=== PATIENT | female | born 1950 | race Caucasian/White ===

== ENCOUNTER → 2017-08-09 | Outpatient (CLI) | payer MEDICARE, OTHER ==
[2015-01-30 09:14] VITALS: BMI 38.4
[~2017-08-09] MED LIST: ADV100/50 INH; ALB6.7R INH; AMOX-362 PO; ASPI-1471 PO; ASPI-764 PO; ATOR20TA22 PO; BARIUM SULFATE 148 GM POWDER ONE; BARIUM SULFATE 240 ML ORAL SUS (NECTAR) ONE; CA C; CALC-547 PO; CARV12.578 PO; CHOL200074 PO; CIP500 PO; CIPR-326 PO; CRAN200C5 PO; CRAN400C2 PO; DAR100 PO; DEXL60CA6 PO; ESTR0.9T14 PO; FURO-47 PO; GABA-549 PO; HYDR12.558 PO; HYDR200T39 PO; HYDR200T42 PO; HYDR200T77 PO; HYDR2TAB74 PO; IBUP200C74 PO; LISI-349 PO; LISI20TA29 PO; LOR5 PO; MELO-207 PO; META-1 PO; METO25TA91 PO; METO25TA93 PO; MULT-1176 PO; OMEP-125 PO; OXYC-865 PO; OXYC5CAP21 PO; PHENA200 PO; RIV10 PO; RIVA20TA PO; TIO18R IH; TRA50 PO; TRAM-420 PO; VALA100062 PO; VALA500T66 PO; VALP250C32 PO; WARF5TAB23 PO; [UNRECOGNIZED DRUG - OTHER] SUBQ
--- NOTE | 2017-08-09 16:53 | RADIOLOGY IMAGING REPORT ---
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 Findings: A modified barium swallow was performed by the speech pathologist. Fluoroscopic assistance was provi ded. Patient received thin barium and various solids and a barium tablet. Mild oral dysphagia was n oted with meat. Please see speech pathologist report for complete details. The fluoroscopy dose are a product was 340.86 micro-Masterson per meter squared IMPRESSION: 1. As above Report Dictated By: Indy Henriquez MD at 08/09/2017 4:42 PM Report E-Signed By: Indy Henriquez MD at 08/09/2017 4:48 PM WSN:[email or web address]
--- NOTE | 2017-08-10 08:57 | SLP MODIFIED BARIUM SWALLOW ---
Speech Language Pathology Modified Barium Swallow Evaluation Report Date of Evaluation: 08/09/17 Patient Name: Dory Freed Patient : 1950 Physician: Solomon Tapia ENT Clinician: Araceli Brasher M.S., CCC-ROLLER BEARING INSPECTOR BACKGROUND The patient is a 67 yr old female. The patient was referred for an MBS to assess swallow structure and function as indicated by s/s of pharyngeal dysphagia including globus sensation, vocal changes. Pt reported difficulty swallowing meats and breads and no difficulty with liquid. Pt reported taking medication for GERD and feels it is managing her symptoms well. Oxygen Supplementation: No Level of Consciousness: Non altered Cognitive/Linguistic: WNL Orientation: x4 Language: -expressive: nonaphasic -receptive: nonaphasic Speech: -non-apraxic -non-dysarthric Voice -Dysphonia: breathy, low volume, intermittent aphonias -Nasal emission: No -Hypernasality: No -Wet Vocal Quality: No Non-verbal Oral Structure and Function: WNL Pain with Swallow: Denies. MODIFIED BARIUM SWALLOW In conjunction with radiology, lateral view with trials of the following consistencies: thin barium liquid (noncarbonated), barium marked pureed, mechanical soft, and regular food consistencies, and a 1cm barium pill. ORAL STAGE Thin Liquids: no evidence of dysphagia . WNL Pureed Foods: no evidence of dysphagia . WNL Mechanical Soft Foods: no evidence of dysphagia . WNL Regular Foods: mild dysphagia. Poor AP transit to posterior lingual surface, delay in swallow initiation PHARYNGEAL STAGE Thin Liquid: no evidence of dysphagia WNL. Pureed Food: no evidence of dysphagia WNL. Mechanical Soft Foods: no evidence of dysphagia WNL. Regular Food Consistency: no evidence of dysphagia WNL. ESOPHAGEAL STAGE Peristaltic movement appears to be WNL Cervical Esophagus: Materials witnessed clearing from cervical esophagus WNL. Thoracic Esophagus: Materials witnessed clearing from upper/mid/lower thoracic esophagus WNL. MARLA: Non witnessed. Pt reports taking medication which she feels controls her symptoms Laryngopharyngeal Reflux (LPR) None witnessed. BARIUM PILL: 1cm barium pill taken with thin liquids. No oral, pharyngeal, or esophageal dysphagia witnessed. Penetration/Aspiration Scale*: Thin liquid: Score of 1 = Material does not enter the airway. Puree: Score of 1= Material does not enter airway Soft and regular solids: Score of 1= Material does not enter airway *(Uche et al. 1996) SUMMARY Aspiration Risk: Low. Mild oral stage dysphagia witnessed with poor bolus transit to posterior lingual surface in preparation of swallow with meats and breads only. Pt reports avoiding meats and breads to compensate. Mild delay in swallow initiation. Pt reports dentures reduce effectiveness of bolus manipulation. No pharyngeal stage dysphagia witnessed. No laryngeal penetration or aspiration witnessed. Dysphagia Severity Rating Scale (Gramigna, 2006; Lizbeth et. al., 1990): 0, Normal swallowing mechanism RECOMMENDATIONS 1. Further Evaluation: None at this time. 2. Speech Therapy: Speech therapy for oral stage weakness may benefit this patient. Voice therapy is also recommended Thank you for this referral. Please call [phone] to contact the ROLLER BEARING INSPECTOR. Araceli Brasher M.S., [facility]-ROLLER BEARING INSPECTOR Physician Signature Date MTDD
== END ==
LOC: RAD 00:59
PROVIDERS: ATTEND Otolaryngology
DX: R13.14 Dysphagia, pharyngoesophageal phase (principal)
CPT/HCPCS: 74230

== ENCOUNTER 2017-10-07 09:00 | Outpatient (RCR) | payer MEDICARE, OTHER ==
[2015-01-30 09:14] VITALS: BMI 38.4
--- NOTE | 2017-08-29 12:53 | SLP EVALUATION SUMMARY REPORT ---
VOCAL PRODUCTION EVALUATION REPORT NAME: Dory Freed EVALUATION DATE: 08/26/2017 DATE OF : 1950 DIAGNOSIS: Dysphonia EXAMINER: Divine Mckinley MS, [facility]-DIRECTOR PRODUCT MANAGEMENT PHYSICIAN: Solomon Tapia Jr., MD History The patient is a 66year old female seen by speech therapy for voice evaluation. Pt is diagnosed w/ dysphonia of unknown cause, although she attributes onset to coinciding w/ stroke (R posterior parietal lobe) occurring in June of last year. Pt reports participating in laryngoscopy procedure w/ ENT (unable to locate records), and that results came back normal. Pt also recently participated in modified barium swallow study. Results were overall WFL, despite mildly impaired oral phase of swallow w/ oromotor weakness and mild delay in swallow onset. Outpatient voice evaluation was recommended. Evaluation Results Breath Support: abdominal, diaphragmatic, WFL Maximum Phonation Time: Highly variable. Range: 3 - 10 seconds (~20seconds considered WFL) Pitch: Highly variable. Excessively high at times; other times appropriate. Breathiness: Highly variable. Notably breathy at times; other times WNL. Hoarseness: Mild hoarseness over time after prolonged periods of speaking or phonation Intensity: Decreased intensity over time after prolonged periods of speaking Vocal Quality: Mild to moderately impaired vocal quality characterized by intermittent breathiness, inappropriately high pitch, and evident vocal tension/ strain. s/z Ratio: Highly variable. 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 Self-Perceptual Measures and Functional Communication: Voice Handicap Index (VHI) During the evaluation, Ms. Freed completed a VHI based on a 4pt scale to indicate vocal changes and the functional impact of these changes on ones life. The VHI is composed of three categories; physical , functional, and emotional subtests. An overall score of 0-30 reflects a minimal handicap, 31-60 reflects moderate handicap, and 60-120 is indicative of severe impairment. Results: Physical= 15 Functional=15 Emotional=8 Total score= 38 Based on the VHI, pt demonstrates mild to moderate vocal impairments. Impairments appear to negatively impact the pt's interactions with others, and result in frequent frustration/confusion. Pt also reports that her voice results in avoidance of communication via phone and in large group settings. Pt describes her vocal deficits has highly unpredictable, sudden, and irritating. Perceptual Vocal Quality Scale: Overall Quality 31/100; Hoarseness 15/100, Breathiness 27/100, Pitch 40/100, Intensity 26/100; Tension/Strain 38/100 Compensatory Strategies: Chin down improved vocal quality via lowering of fundamental frequency. Hard glottal attack unsuccessful w/ decreasing breathiness. 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 Vocal deficits have negatively impacted day to day social interactions, participation in previously enjoyed activities (e.g., choir), and communicative avoidance behaviors. Pt also reports high level of frustration as a result of inconsistent nature of vocal impairments. Vocal deficits are characterized by intermittent breathiness , high pitch, and evident strain when speaking in conversation. Based on evaluation results, voice therapy is warranted to provide patient instruction in behavioral compensations and vocal exercises to minimize functional impact of changes in voice production. An individualized program and home program will be established and trained. Pt was provided education re: relaxation exercises to decrease vocal strain, benefits of increased hydration, and strategies to lower fundamental frequency via postural modification. Pt was also encouraged to record instances increased vocal deficits w/ details re: time of day, stress levels, and fatigue. Prognosis: Good. Strong motivation to participate. Recommendations ST 1-2x/wk, 6wks POC Short Term Goals 1. Pt will self report a change of 10 points or more on the total score of the Voice Handicap Scale 2. Pt will independently complete voice exercise program to address identified areas of breathiness, strain, excessive pitch, and decreased intensity w/ goal of improving overall vocal quality and functional communication. 3. Pt will demonstrate max phonation time wnl (20 seconds) with good vocal quality including reduced breathiness, appropriate pitch breaks, and decreased strain as judged by perceptual measures via patient and speech language pathologist. 4. Pt will demonstrate decreased scores on each measure of the Perceptual Vocal Quality Scale to at or below 15/100 (average of mild). Long-Term Goal Pt will demonstrate functional vocal production and overall quality of voice during conversation at work, home, and in community. Thank you for this referral. Please call [phone] Divine Mckinley M.S., [facility]-DIRECTOR PRODUCT MANAGEMENT Physician Signature Date MTDD
[~2017-10-07 09:00] MED LIST changes: -BARIUM SULFATE 148 GM POWDER ONE; -BARIUM SULFATE 240 ML ORAL SUS (NECTAR) ONE
--- NOTE | 2017-10-07 12:00 | SLP PLAN OF CARE ---
SPEECH THERAPY PLAN OF CARE UPDATE, VOCAL PRODUCTION Patient Name: Dory Freed Date: 10/07/2017 Date of : 1950 Clinician: Divine Mckinley MS, CCC-HARDWARE TEST ENGINEER Treatment Diagnosis: Dysphonia Ms. Freed attends ST at [facility] 2x/wk to address vocal production deficits. Ms. Freed is a 66 year old female who initially presented to outpatient speech services with a diagnosis of dysphonia of unknown cause. She continues to attribute the onset of her vocal concerns to coinciding with a stroke (R posterior parietal lobe) occurring in June of last year. After participating in voice treatment, Ms. Freed has also endorsed suspicion that anxiety and emotional overload may intermittently impact voice production. She has attended a total of 10 ST tx sessions since start of care, with 1 visit missed due to seasonal allergies. Ms. Freed is highly motivated to succeed, and frequently reports independent completion of exercise program at home. She enjoys involving her daughter and granddaughter in these activities. POC Short Term Goals 1. Pt will self-report a change of 10 points or more on the total score of the Voice Handicap Scale GOAL MET; d/c. Pt reports a vocal handicap score of 21 vs initial score of 38, with self-perception of significant reduction in frustration, avoidance behaviors, and unpredictability. Results: Physical= 16 (initial score: 15) Functional= 3 (initial score: 15) Emotional= 2 (initial score: 8) Total score= 21 (initial score: 38) 2. Pt will independently complete voice exercise program to address identified areas of breathiness, strain, excessive pitch, and decreased intensity w/ goal of improving overall vocal quality and functional communication. Pt requires intermittent cues for accurate technique w/ completion of pitch glides, diaphragmatic breathing, and laryngeal relaxation exercises. Pt will cont to be instructed in vocal exercise program w/ frequency of visits decreased to 1x/wk for 2 additional weeks to maximize potential, promote maintenance, and complete established POC. 3. Pt will demonstrate max phonation time wnl (20 seconds) with good vocal quality including reduced breathiness, appropriate pitch breaks, and decreased strain as judged by perceptual measures via patient and speech language pathologist. Max phonation time has been somewhat variable since SOC, ranging from 12 up to 20 seconds. This will cont to be targeted during remainder of tx sessions w/ increased focus on training in breath support and coordination of respiration/ phonation to promote strength and efficiency of vocal output. 4. Pt will demonstrate decreased scores on each measure of the Consensus Auditory-Perceptual Evaluation of Voice (CAPE-V) to at or below 15/100 (average of mild). GOAL MET; d/c. Significant improvements have been noted across all perceptual measurements during production of sounds, structured sentences, and spontaneous speech. Results at initial evaluation: Overall Quality 31/100; Roughness 15/100, Breathiness 27/100, Pitch 40/100, Intensity 26/100; Tension/Strain 38/100 Results at 10th visit: Overall Quality 8/100; Hoarseness 2/100, Breathiness 14/100, Pitch 13/100, Intensity 4/100; Tension/Strain 13/100 Usp Goal Pt will demonstrate functional vocal production and overall quality of voice during conversation at home and in the community. Pt has reported decreased avoidance behaviors, including increased desire to communicate on the phone and at group events. Pt has also reported increased willingness to return to participation in the [employer] choir, and decreased anxiety attributed to variations in voice production. SUMMARY Ms. Freed presents with mild vocal impairments, reflective of notable improvement vs baseline performance. Improvements have also been observed in emotional and functional perception of vocal deficits on overall quality of life , including increased desire to participate in previously enjoyed activities ( e.g., choir), decreased anxiety, and decreased communicative avoidance behaviors. She no longer reports frustration as a result of vocal deficits. RECOMMENDATIONS Continue with updated POC (1x/wk for remaining 2 wks). Emphasis will be on instruction in technique for independent completion of home vocal exercise program, and on increased respiratory support for efficient coordination of respiration/phonation and increased vocal intensity. PROGNOSIS: Good. Patient demonstrates motivation and progress since SOC. . Thank you for this referral. Please call [phone] Divine Mckinley MS, CCC-HARDWARE TEST ENGINEER Physician Signature Date [*] MTDD
== END 2017-10-07 18:00 | disposition home or self-care (01) ==
LOC: ST 09:00
PROVIDERS: ATTEND Otolaryngology
DX: R13.12 Dysphagia, oropharyngeal phase (principal); R49.0 Dysphonia; K21.9 Gastro-esophageal reflux disease without esophagitis; Z87.891 Personal history of nicotine dependence
CPT/HCPCS: 92524

== ENCOUNTER → 2017-10-27 | Outpatient (CLI) | payer MEDICARE, OTHER ==
[2015-01-30 09:14] VITALS: BMI 38.4
--- NOTE | 2017-10-27 15:21 | RADIOLOGY IMAGING REPORT ---
[place] [facility] [place] BERENICE WELLS : [id number] MR: [id number] V: [id number] EXAM DATE: ORDERING PHYSICIAN: KEITH GRIGGS TECHNOLOGIST: Jeni Chapin PROCEDURE:BILATERAL DIGITAL SCREENING MAMMOGRAM WITH CAD ASSISTED INTERPRETATION & 3D TOMOSYNTHESIS COMPARISON:Prior mammograms 10/08/16, 08/20/15 INDICATIONS:SCREENING FINDINGS: Scattered fibroglandular tissue is noted. A few scattered benign unchanged round breast microcalcifications. No suspicious mass, microcalcification or architectural distortion. No change compared to priors. DIAGNOSTIC CATEGORY 1--NEGATIVE. RECOMMENDATIONS: ROUTINE MAMMOGRAM AND CLINICAL EVALUATION. IMPRESSION: BIRADS 1: Negative. Annual mammographic screening recommended. Dictated by: Andrea Stockton on 10/27/2017 at 11:28 Transcribed by: CLINT on 10/27/2017 at 13:08 Approved by: Andrea Stockton on 10/27/2017 at 15:20 [facility]
== END ==
LOC: MAMO 02:57
PROVIDERS: ATTEND Physician Assistant
DX: Z12.31 Encounter for screening mammogram for malignant neoplasm of breast (principal)
CPT/HCPCS: 77063; 77067

== ENCOUNTER → 2017-11-30 | Outpatient (CLI) | payer MEDICARE, OTHER ==
[2015-01-30 09:14] VITALS: BMI 38.4
--- NOTE | 2017-11-30 14:08 | RADIOLOGY IMAGING REPORT ---
FACILITY: [facility] PATIENT NAME: Dory Freed : 1950 MR: [id number] V: [id number] EXAM DATE: ORDERING PHYSICIAN: KEITH GRIGGS TECHNOLOGIST: Location: [facility] - [place] Patient: Dory Freed : 1950 Visit/Account:[id number] Date of Sevice: 11/30/2017 Exam type: THORACIC SPINE 3 VIEWS History: Low back pain and fall three weeks ago Comparison: CT of the T-spine October 23, 2015. Findings: There is a gentle dextroconvex scoliosis of the upper thoracic spine. There are extensive multilevel spondylotic changes with disc space narrowing and marginal osteophytes throughout the visualized tho racic spine.. No definite fracture or subluxation seen IMPRESSION: 1. Extensive spondylotic changes of the thoracic spine although no definite fracture or subluxation seen Report Dictated By: Indy Henriquez MD at 11/30/2017 2:00 PM Report E-Signed By: Indy Henriquez MD at 11/30/2017 2:03 PM WSN:[email or web address]
--- NOTE | 2017-11-30 14:10 | RADIOLOGY IMAGING REPORT ---
FACILITY: [facility] PATIENT NAME: Dory Freed : 1950 MR: [id number] V: [id number] EXAM DATE: ORDERING PHYSICIAN: KEITH GRIGGS TECHNOLOGIST: Location: [facility] - [place] Patient: Dory Freed : 1950 Visit/Account:[id number] Date of Sevice: 11/30/2017 Exam type: LUMBAR SPINE 2 OR 3 VIEW History: Back pain, fall three weeks ago Comparison: December 24, 2013. Findings: There are five nonrib-bearing lumbar-type vertebral bodies present. There are postsurgical changes f rom posterior decompression from L2-L5. Extensive degenerative facet joint changes are present at L4 -5 and L5-S1. There is a 4.5 mm anterior listhesis of L4 with respect L5 not appreciated on the prio r study. There is severe disc space narrowing and anterior osteophytes at L2-3 mild to moderate disc space narrowing at L3-4 moderate disc space narrowing L4-5 and L5-S1. No evidence of acute appearin g fractures IMPRESSION: 1. Extensive spondylotic changes of the lumbar spine although no gross evidence of acute fractures. There is a 4.5 mm anterior subluxation of L4 with respect L5 not present in 2013 although could be de generative in nature as there are extensive degenerative facet joint changes at this level Postsurgical changes from posterior decompression from L2 to L5 Report Dictated By: Indy Henriquez MD at 11/30/2017 2:03 PM Report E-Signed By: Indy Henriquez MD at 11/30/2017 2:06 PM WSN:[email or web address]
== END ==
LOC: RAD 10:40
PROVIDERS: ATTEND Physician Assistant
DX: M47.896 Other spondylosis, lumbar region (principal); M51.36 Other intervertebral disc degeneration, lumbar region; Z98.890 Other specified postprocedural states; M47.894 Other spondylosis, thoracic region
CPT/HCPCS: 72072; 72100

== ENCOUNTER → 2018-12-08 | Outpatient (CLI) | payer MEDICARE, OTHER ==
[2015-01-30 09:14] VITALS: BMI 38.4
[~2018-12-08] MED LIST changes: -OMEP-125 PO; +OMEP-126 PO
--- NOTE | 2018-12-11 10:06 | RADIOLOGY IMAGING REPORT ---
FACILITY: [facility] - [place] PATIENT NAME: BERENICE WELLS : [id number] MR: [id number] V: [id number] EXAM DATE: [id number] ORDERING PHYSICIAN: KEITH GRIGGS TECHNOLOGIST: Jeni Chapin PROCEDURE: BILATERAL DIGITAL SCREENING MAMMOGRAM WITH CAD ASSISTED INTERPRETATION & 3D TOMOSYNTHESIS REASON FOR STUDY: Screening. FAMILY HISTORY OF BREAST CANCER: None. BREAST PROCEDURES/TREATMENTS: None. COMPARISON: 10/27/17, 10/08/16, 08/20/15, 12/12/13, 11/24/12. VIEWS OBTAINED: Bilateral 2D & 3D full field CC & MLO projections. BREAST DENSITY: There are scattered areas of fibroglandular density throughout the breasts. MAMMOGRAM FINDINGS: The parenchymal pattern has remained stable allowing for difference in mammographic technique & patient positioning. IMPRESSION: BIRADS 1: Negative. DIAGNOSTIC CATEGORY 1--NEGATIVE. RECOMMENDATIONS: ROUTINE MAMMOGRAM AND CLINICAL EVALUATION. Dictated by: Indy Henriquez M.D. on 12/08/2018 at 14:09 Transcribed by: CLINT on 12/08/2018 at 15:33 Approved by: Indy Henriquez M.D. on 12/11/2018 at 10:01 [facility]
== END ==
LOC: MAMO 04:07
PROVIDERS: ATTEND Physician Assistant
DX: Z12.31 Encounter for screening mammogram for malignant neoplasm of breast (principal)
CPT/HCPCS: 77063; 77067